=== PATIENT | female | born 1970 | race Caucasian/White ===

== ENCOUNTER 2018-09-26 15:09 | Emergency (ER) | payer SELFPAY ==
[2018-09-26 15:21] VITALS: BP 123/81
[2018-09-26] MEDS ORDERED: Ibuprofen TAB* 600 MG PO ONE (15:40)
--- NOTE | 2018-09-26 15:54 | ED ---
Respiratory - HPI Summary HPI Summary: 47 yr old female with runny nose, sinus congestion, post nasal drip, left ear pain, onset 7-10 days ago. She reports that when she leans forward and then stands back up she feels a little dizzy like room moves. She complains of pain in her chest and back and also the lateral ribs, onset today, but only with deep breath and coughing. She does have yellow nasal drainage. She does not have fever. The patient reports she has no pain in the chest if she stays still , and if she holds her breath. She only gets discomfort with deep breathing and coughing. She has not had any shortness of breath. She has not had any leg swelling or pain. She states others in her family have cough and cold symptoms as well. - History of Current Complaint Chief Complaint: UCGeneralIllness Stated Complaint: CHEST PAIN WITH DEEP BREATH,DIZZY,BACKACHE Time Seen by Provider: 09/26/18 15:27 Pain Intensity: 3 - Allergy/Home Medications Allergies/Adverse Reactions: Allergies Allergy/AdvReac Type Severity Reaction Status Date / Time No Known Allergies Allergy Verified 09/26/18 15:21 Home Medications: Home Medications Atorvastatin* [Lipitor*] 20 mg PO 1700 09/26/18 [History Confirmed 09/26/18] Cholecalciferol TAB* [Vitamin D TAB*] 5,000 unit PO DAILY 09/26/18 [History Confirmed 09/26/18] Furosemide TAB* [Lasix TAB*] 20 mg PO DAILY 09/26/18 [History Confirmed 09/26/18 ] Iron 65 mg PO DAILY 09/26/18 [History Confirmed 09/26/18] Lisinopril [Lisinopril 30 MG-] 30 mg PO DAILY 09/26/18 [History Confirmed ] Sertraline* [Zoloft*] 50 mg PO DAILY 09/26/18 [History Confirmed 09/26/18] metFORMIN* [Glucophage 500 MG TAB *] 500 mg PO DAILY 09/26/18 [History Confirmed 09/26/18] PMH/Surg Hx/FS Hx/Imm Hx Cardiovascular History: Reports: Hx Hypertension - Surgical History Surgery Procedure, Year, and Place: fracture ankle. c section Infectious Disease History: No Infectious Disease History: Denies: Traveled Outside the [place] in Last 30 Days - Family History Known Family History: Positive: Cardiac Disease - in people over age of 70 Family History: neg for PE - Social History Alcohol Use: Occasionally Substance Use Type: Reports: None Smoking Status (MU): Never Smoked Tobacco Review of Systems Constitutional: Negative Positive: Sore Throat, Ear Ache, Nasal Discharge Positive: Cough All Other Systems Reviewed And Are Negative: Yes Physical Exam Triage Information Reviewed: Yes Vital Signs On Initial Exam: Initial Vitals Temp Pulse Resp BP Pulse Ox 98.2 F 91 16 123/81 97 09/26/18 15:17 09/26/18 15:17 09/26/18 15:17 09/26/18 15:17 09/26/18 15:17 Vital Signs Reviewed: Yes Appearance: Positive: Well-Appearing, No Pain Distress Skin: Positive: Warm, Skin Color Reflects Adequate Perfusion Head/Face: Positive: Normal Head/Face Inspection Eyes: Positive: EOMI, GODWIN ENT: Positive: Nasal congestion, Nasal drainage, TM red - left with small effusion Neck: Positive: Supple Respiratory/Lung Sounds: Positive: Clear to Auscultation, Breath Sounds Present , Other - she has tenderness of the lower sternum and also the costochondral areas with palpation. Cardiovascular: Positive: RRR. Negative: Murmur Abdomen Description: Positive: Nontender. Negative: Distended Musculoskeletal: Positive: Strength/ROM Intact. Negative: Edema Left, Edema Right Neurological: Positive: Sensory/Motor Intact, Alert, Oriented to Person Place, Time, CN Intact II-III, Normal Gait, Speech Normal Psychiatric: Positive: Normal Diagnostics - Vital Signs Vital Signs Temp Pulse Resp BP Pulse Ox 09/26/18 15:17 98.2 F 91 16 123/81 97 - Laboratory Lab Statement: Any lab studies that have been ordered have been reviewed, and results considered in the medical decision making process. - Radiology chest pa and lat Radiology Interpretation Completed By: Radiologist - nad - EKG 09/26/18 Cardiac Rate: NL EKG Rhythm: Sinus Rhythm ST Segment: Normal - No STEMI Ectopy: None Disposition - Course Course Of Treatment: 47 yr old with reproducible chest wall pain, and coughing and sinusitis and OM. Will Rx with motrin script and also Augmentin - Diagnoses Provider Diagnoses: Sinusitis, Chest wall pain, Otitis media Discharge - Sign-Out/Discharge Documenting (check all that apply): Patient Departure All imaging exams completed and their final reports reviewed: No Studies - Discharge Plan Condition: Good Disposition: HOME Prescriptions: Amoxicillin/Clavulanate TAB* [Augmentin TAB 875*] 875 mg PO BID #20 tab Ibuprofen TAB* [Motrin TAB* 600 MG] 600 mg PO Q8H PRN #20 tab PRN Reason: Pain Meclizine TAB* [Antivert 12.5 TAB*] 12.5 mg PO TID #15 tab Patient Education Materials: Sinusitis (ED), Ear Infection (ED), Chest Wall Pain (ED) Referrals: Audra Dillon [Primary Care Provider] - 3 Days - Billing Disposition and Condition Condition: GOOD Disposition: Home
== END 2018-09-26 16:59 | disposition home or self-care (01) ==
LOC: UCCORT 15:09
DX: H66.92 Otitis media, unspecified, left ear (principal); R07.89 Other chest pain; J32.9 Chronic sinusitis, unspecified; R42 Dizziness and giddiness; I10 Essential (primary) hypertension; Z79.899 Other long term (current) drug therapy
CPT/HCPCS: 71046; 93005; 99202; A9270-GY; G0463